=== PATIENT | female | born 1970 | race Caucasian/White ===

== ENCOUNTER 2018-03-26 13:31 | Inpatient (IN) ==
[2018-03-26] MEDS ORDERED: ASPIRIN 325 MG TABLET PO STA (14:15)
[2018-03-26] MEDS ORDERED: ONDANSETRON 4 MG/2 ML VIAL ONE (14:52)
[2018-03-26] MEDS ORDERED: ONDANSETRON 4 MG/2 ML VIAL IV STA (14:55)
[2018-03-26 14:56] LABS: Basophils # 0.1 10*3/uL (0.0-0.2); Basophils % 0.8 % (0.0-0.8); Eosinophils % 0.4 % (0.00-10.9); Hematocrit 37.6 VOL% (35.7-47.0); Hemoglobin 12.6 GM/DL (12.0-16.0); Immature Granulocytes % 0.4 %; Immature Granulocytes Absolute 0.04 #; Lymphocytes # 1.6 10*3/uL (1.4-4.0); Mean Corpuscular HGB Conc 33.5 GM/DL (32-36); Mean Corpuscular Hemoglobin 35 PG (27-34); Mean Corpuscular Volume 104.4 FL (87-102); Mean Platelet Volume 9.2 FL (9.6-12.0); Monocytes # 0.5 10*3/uL (0.11-0.8); Monocytes % 5.9 % (1.7-12.7); Neutrophils # 6.6 10*3/uL (1.4-7.4); Neutrophils % 74.5 % (38.7-73.9); Platelet Count 330 T/CUMM (130-400); Red Cell Distribution Width 15.2 % (9.3-17.3); White Blood Count 8.9 T/CUMM (4-12)
[2018-03-26 15:04] LABS: PT Patient Result 10.1 SECS; Partial Thromboplastin Time 28.1 SECS (0-40)
[2018-03-26 15:12] LABS: Apearance,Urine Slightly Hazy (Clear); Bacteria,Urine Occasional /HPF (Few); Bilirubin,Urine Negative (Negative); Blood, Urine Small mg/dL (Negative); Glucose,Urine (UA) Negative (Negative); Ketones,Urine Negative (Negative); Mucus,Urine Occasional /LPF (Occasional); Nitrite,Urine Negative (Negative); Protein,Urine Negative; RBC,Urine <1 /HPF (0-4); Squamous Epithelial Cell,Urine Few /HPF (0-10); Urine Color Yellow (Yellow); Urine Urobilinogen < 2.0 EU/DL (0.2-1.0); WBC,Urine 1 /HPF (0-6)
[2018-03-26 15:16] LABS: Alanine Aminotransferase 16 U/L (13-56); Albumin 3.6 G/DL (3.4-5.0); Alkaline Phosphatase 72 U/L (45-117); Aspartate Amino Transferase 22 U/L (0-37); Bilirubin,Total < 0.39 MG/DL (0.2-1.0); Blood Urea Nitrogen 5 MG/DL (7-18); Calcium 8.5 MG/DL (8.5-10.1); Glucose 85 MG/DL (74-106); Osmolality,Calculated 274.4 MOS/KG (273-304); Sodium 140 MMOL/L (136-145); Total Protein 7.2 G/DL (6.4-8.3)
[2018-03-26 15:17] LABS: Barbiturates Screen,Urine Negative (Negative); Benzodiazepines Screen,Urine Positive (Negative); Cannabinoid Screen,Urine Negative (Negative); Opiate Screen,Urine Negative (Negative); Phencyclidine Screen,Urine Negative (Negative)
[2018-03-26] MEDS ORDERED: NITROGLYCERIN SL 0.4 MG TABLET SL PRN (16:22)
[2018-03-26] MEDS ORDERED: ZALEPLON 5 MG CAPSULE PO PRN (16:22)
[2018-03-26] MEDS ORDERED: clonazePAM 0.5 MG TABLET PO PRN (16:26)
[2018-03-26] MEDS ORDERED: ENOXAPARIN 40 MG/0.4 ML SYRINGE SUBCUT SCH (16:30)
[2018-03-26] MEDS ORDERED: IBUPROFEN 800 MG TABLET PO PRN (17:52)
[2018-03-26 18:26] LABS: Risk Ratio 7.5
[2018-03-26] MEDS: ONDANSETRON 4 MG/2 ML VIAL IV PRN (19:16)
[2018-03-26] MEDS: PROMETHAZINE 25 MG TABLET PO PRN (19:47)
[2018-03-26] MEDS: ENOXAPARIN 60 MG/0.6 ML SYRINGE SUBCUT SCH (20:44)
[2018-03-26] MEDS: ROSUVASTATIN 20 MG TABLET PO SCH (20:44)
[2018-03-26] MEDS: METOPROLOL TARTRATE 25 MG TABLET PO SCH (22:57)
[2018-03-27] MEDS ORDERED: MAGNESIUM ASPARTATE PO SCH (09:00)
[2018-03-27] MEDS ORDERED: POTASSIUM PO SCH (09:00)
[2018-03-27] MEDS ORDERED: ASPIRIN EC 325 MG TABLET PO SCH (09:00)
[2018-03-27] MEDS ORDERED: POTASSIUM CHLORIDE RIDER 10 MEQ in PREMIX 1 EACH IV PRN (09:04)
[2018-03-27] MEDS ORDERED: MAGNESIUM SULF RIDER 2 GM in PREMIX 1 EACH IV PRN (09:04)
[2018-03-27] MEDS: METOPROLOL TARTRATE 25 MG TABLET PO SCH ×2 (09:33→21:41)
[2018-03-27 09:40] LABS: Basophils # 0.1 10*3/uL (0.0-0.2); Basophils % 1.5 % (0.0-0.8); Eosinophils # 0.1 10*3/uL (0.0-0.87); Eosinophils % 1.4 % (0.00-10.9); Hematocrit 34.1 VOL% (35.7-47.0); Hemoglobin 11.4 GM/DL (12.0-16.0); Immature Granulocytes % 0.3 %; Immature Granulocytes Absolute 0.02 #; Lymphocytes # 2.6 10*3/uL (1.4-4.0); Lymphocytes % 43.8 % (21.3-54.2); Mean Corpuscular HGB Conc 33.4 GM/DL (32-36); Mean Corpuscular Hemoglobin 35 PG (27-34); Mean Corpuscular Volume 104.9 FL (87-102); Mean Platelet Volume 9.4 FL (9.6-12.0); Monocytes # 0.4 10*3/uL (0.11-0.8); Neutrophils # 2.7 10*3/uL (1.4-7.4); Platelet Count 285 T/CUMM (130-400); Red Blood Count 3.25 MC/CUMM (3.8-5.5); Red Cell Distribution Width 15.3 % (9.3-17.3); White Blood Count 5.8 T/CUMM (4-12)
[2018-03-27] MEDS: ASPIRIN EC 81 MG TABLET PO SCH ×2 (10:00→13:07)
[2018-03-27] MEDS: PANTOPRAZOLE 40 MG TABLET PO SCH (10:00)
[2018-03-27 10:01] LABS: Calcium 7.9 MG/DL (8.5-10.1); Osmolality,Calculated 277.3 MOS/KG (273-304); Potassium 3.6 MMOL/L (3.5-5.1)
[2018-03-27] MEDS: LEVOTHYROXINE 150 MCG TABLET PO SCH (10:01)
[2018-03-27] MEDS: ENOXAPARIN 60 MG/0.6 ML SYRINGE SUBCUT SCH ×2 (10:16→21:41)
[2018-03-27] MEDS: ONDANSETRON 4 MG/2 ML VIAL IV PRN (10:16)
[2018-03-27] MEDS ORDERED: SODIUM CHLORIDE 0.45% 1,000 ML IV SCH (12:00)
[2018-03-27] MEDS ORDERED: diphenhydrAMINE CAP 25 MG CAPSULE PO ONE (12:30)
[2018-03-27] MEDS ORDERED: DIAZEPAM 5 MG TABLET PO ONE (12:30)
[2018-03-27] MEDS ORDERED: MIDAZOLAM 2 MG/2 ML VIAL ONE ×2 (13:19→14:26)
[2018-03-27] MEDS ORDERED: LIDOCAINE 1% 20 ML VIAL ONE (13:19)
[2018-03-27] MEDS ORDERED: fentaNYL 100 MCG/2 ML VIAL ONE (13:32)
[2018-03-27 13:37] LABS: Free T4 (Free Thyroxine) 0.23 NG/DL (0.76-1.46)
[2018-03-27] MEDS ORDERED: BIVALIRUDIN 250 MG VIAL IV ONE ×2 (13:55→13:56)
[2018-03-27] MEDS ORDERED: CLOPIDOGREL 300 MG TABLET ONE (14:31)
[2018-03-27] MEDS ORDERED: ACETAMINOPHEN 325 MG TABLET PO PRN (14:52)
[2018-03-27] MEDS ORDERED: fentaNYL 100 MCG/2 ML VIAL IV PRN (14:52)
[2018-03-27] MEDS: ROSUVASTATIN 20 MG TABLET PO SCH (21:41)
[2018-03-27] MEDS: MORPHINE 4 MG/1 ML VIAL IV PRN (21:41)
[2018-03-27] MEDS: PROMETHAZINE 25 MG TABLET PO PRN (23:04)
[2018-03-28] MEDS: MORPHINE 4 MG/1 ML VIAL IV PRN (02:23)
[2018-03-28 05:55] LABS: Basophils # 0.1 10*3/uL (0.0-0.2); Basophils % 1.1 % (0.0-0.8); Eosinophils # 0.1 10*3/uL (0.0-0.87); Eosinophils % 1.7 % (0.00-10.9); Hematocrit 34.6 VOL% (35.7-47.0); Hemoglobin 11.8 GM/DL (12.0-16.0); Immature Granulocytes % 0.6 %; Immature Granulocytes Absolute 0.04 #; Lymphocytes # 2.3 10*3/uL (1.4-4.0); Lymphocytes % 31.6 % (21.3-54.2); Mean Corpuscular HGB Conc 34.1 GM/DL (32-36); Mean Corpuscular Hemoglobin 36 PG (27-34); Mean Corpuscular Volume 105.5 FL (87-102); Mean Platelet Volume 9.6 FL (9.6-12.0); Monocytes # 0.5 10*3/uL (0.11-0.8); Monocytes % 6.7 % (1.7-12.7); Neutrophils # 4.2 10*3/uL (1.4-7.4); Neutrophils % 58.3 % (38.7-73.9); Platelet Count 272 T/CUMM (130-400); Red Blood Count 3.28 MC/CUMM (3.8-5.5); Red Cell Distribution Width 15.7 % (9.3-17.3); White Blood Count 7.2 T/CUMM (4-12)
[2018-03-28 06:27] LABS: Calcium 8.6 MG/DL (8.5-10.1); Osmolality,Calculated 279.1 MOS/KG (273-304); Potassium 3.6 MMOL/L (3.5-5.1)
[2018-03-28] MEDS: METOPROLOL TARTRATE 25 MG TABLET PO SCH (08:15)
[2018-03-28] MEDS: PANTOPRAZOLE 40 MG TABLET PO SCH (08:15)
[2018-03-28] MEDS: LEVOTHYROXINE 150 MCG TABLET PO SCH (08:15)
[2018-03-28] MEDS ORDERED: CLOPIDOGREL 75 MG TABLET PO SCH (09:00)
[2018-03-28] MEDS ORDERED: ASPIRIN 325 MG TABLET PO SCH (09:00)
[2018-03-28] MEDS ORDERED: SODIUM CHLORIDE 0.9% 500 ML IV ONE (09:11)
[2018-03-28 10:25] VITALS: BP 96/51
== END 2018-03-28 10:23 | disposition home or self-care (01) | DRG 247 ==
LOC: EDUNIT# → EDBD → N.ED 13:31 → N.EDINP 13:31 → SUATTDRO 15:35 → N.4E 17:11 → N.CC 03-27 14:36
PROVIDERS: ADMIT Internal Medicine; ATTEND Internal Medicine
PROC: CLCCHCL (ICD-10-PCS; 2018-03-27 13:45)

== ENCOUNTER 2018-04-16 11:41 | Observation (INO) ==
[2018-04-16 13:00] LABS: Basophils # 0.1 10*3/uL (0.0-0.2); Basophils % 0.9 % (0.0-0.8); Eosinophils # 0.1 10*3/uL (0.0-0.87); Eosinophils % 2.1 % (0.00-10.9); Hematocrit 35.6 VOL% (35.7-47.0); Hemoglobin 12.4 GM/DL (12.0-16.0); Immature Granulocytes % 0.3 %; Immature Granulocytes Absolute 0.02 #; Lymphocytes # 1.9 10*3/uL (1.4-4.0); Mean Corpuscular HGB Conc 34.8 GM/DL (32-36); Mean Corpuscular Hemoglobin 35 PG (27-34); Mean Corpuscular Volume 101.7 FL (87-102); Mean Platelet Volume 9.9 FL (9.6-12.0); Monocytes # 0.4 10*3/uL (0.11-0.8); Monocytes % 6.1 % (1.7-12.7); Neutrophils # 4.1 10*3/uL (1.4-7.4); Neutrophils % 61.6 % (38.7-73.9); Platelet Count 344 T/CUMM (130-400); White Blood Count 6.6 T/CUMM (4-12)
[2018-04-16 13:26] LABS: Blood Urea Nitrogen 3 MG/DL (7-18); Calcium 8.7 MG/DL (8.5-10.1); Glucose 82 MG/DL (74-106); Osmolality,Calculated 278.1 MOS/KG (273-304); Potassium 3.4 MMOL/L (3.5-5.1); Sodium 142 MMOL/L (136-145)
[2018-04-16] MEDS ORDERED: ONDANSETRON 4 MG/2 ML VIAL ONE (13:50)
[2018-04-16] MEDS ORDERED: SODIUM CHLORIDE 0.9% 1,000 ML IV STA (14:01)
[2018-04-16] MEDS ORDERED: ONDANSETRON 4 MG/2 ML VIAL IV STA (14:01)
[2018-04-16] MEDS ORDERED: KETOROLAC 30 MG/1 ML VIAL ONE (14:50)
[2018-04-16] MEDS ORDERED: KETOROLAC 30 MG/1 ML VIAL IV STA (14:52)
[2018-04-16] MEDS ORDERED: ONDANSETRON 4 MG/2 ML VIAL IV PRN (17:06)
[2018-04-16 18:51] LABS: Apearance,Urine CLEAR (Clear); Bacteria,Urine Occasional /HPF (Few); Bilirubin,Urine Negative (Negative); Blood, Urine Negative (Negative); Glucose,Urine (UA) Negative (Negative); Ketones,Urine Negative (Negative); Mucus,Urine Occasional /LPF (Occasional); Nitrite,Urine Negative (Negative); Protein,Urine Negative; RBC,Urine 1 /HPF (0-4); Squamous Epithelial Cell,Urine Occasional /HPF (0-10); Urine Color Straw (Yellow); Urine Specific Gravity 1.004 (1.001-1.035); Urine Urobilinogen < 2.0 EU/DL (0.2-1.0); WBC,Urine 5 /HPF (0-6)
[2018-04-16] MEDS: SODIUM CHLORIDE 0.9% 1,000 ML IV SCH (19:55)
[2018-04-16] MEDS: POTASSIUM CHLORIDE 20 MEQ TABLET PO SCH ×2 (19:59→22:22)
[2018-04-16] MEDS ORDERED: CYCLOBENZAPRINE 10 MG TABLET PO PRN (20:28)
[2018-04-16] MEDS ORDERED: ROSUVASTATIN 20 MG TABLET PO SCH (21:00)
[2018-04-16] MEDS: MORPHINE 4 MG/1 ML VIAL IV PRN (21:53)
[2018-04-17] MEDS: POTASSIUM CHLORIDE 20 MEQ TABLET PO SCH (01:46)
[2018-04-17 04:52] LABS: Basophils # 0.1 10*3/uL (0.0-0.2); Eosinophils # 0.2 10*3/uL (0.0-0.87); Eosinophils % 2.8 % (0.00-10.9); Hematocrit 33.4 VOL% (35.7-47.0); Hemoglobin 11.4 GM/DL (12.0-16.0); Immature Granulocytes % 0.3 %; Immature Granulocytes Absolute 0.02 #; Lymphocytes # 2.7 10*3/uL (1.4-4.0); Mean Corpuscular HGB Conc 34.1 GM/DL (32-36); Mean Corpuscular Hemoglobin 35 PG (27-34); Mean Corpuscular Volume 103.7 FL (87-102); Mean Platelet Volume 10.4 FL (9.6-12.0); Monocytes # 0.4 10*3/uL (0.11-0.8); Monocytes % 6.7 % (1.7-12.7); Neutrophils # 2.8 10*3/uL (1.4-7.4); Neutrophils % 45.2 % (38.7-73.9); Platelet Count 283 T/CUMM (130-400); Red Blood Count 3.22 MC/CUMM (3.8-5.5); Red Cell Distribution Width 14.1 % (9.3-17.3); White Blood Count 6.1 T/CUMM (4-12)
[2018-04-17] MEDS: MORPHINE 4 MG/1 ML VIAL IV PRN (05:12)
[2018-04-17 05:13] LABS: Calcium 8.2 MG/DL (8.5-10.1); Osmolality,Calculated 287.6 MOS/KG (273-304); Potassium 3.9 MMOL/L (3.5-5.1)
[2018-04-17] MEDS ORDERED: LEVOTHYROXINE 150 MCG TABLET PO SCH (06:30)
[2018-04-17] MEDS: SODIUM CHLORIDE 0.9% 1,000 ML IV SCH ×2 (06:53→09:31)
[2018-04-17] MEDS ORDERED: PANTOPRAZOLE 40 MG TABLET PO SCH (09:00)
[2018-04-17] MEDS ORDERED: ASPIRIN 325 MG TABLET PO SCH (09:00)
[2018-04-17] MEDS ORDERED: CLOPIDOGREL 75 MG TABLET PO SCH (09:00)
[2018-04-17] MEDS ORDERED: PYRIDOXINE 100 MG TABLET PO SCH (09:00)
[2018-04-17] MEDS ORDERED: MULTIVITAMIN (CENTRUM) TABLET PO SCH (09:00)
[2018-04-17 11:57] VITALS: BP 93/61
== END 2018-04-17 15:50 | disposition home or self-care (01) ==
LOC: N.EDINP 11:41 → N.ED 11:41 → N.2W 17:19 → N.TELEN 18:32
PROVIDERS: ADMIT Internal Medicine Infectious Disease; ATTEND Internal Medicine Infectious Disease

== ENCOUNTER 2018-05-21 16:45 | Observation (INO) ==
[2018-05-21 17:52] LABS: Albumin 3.6 G/DL (3.4-5.0); Bilirubin,Total 0.6 MG/DL (0.2-1.0); Calcium 8.5 MG/DL (8.5-10.1); Osmolality,Calculated 276.3 MOS/KG (273-304); Potassium 3.9 MMOL/L (3.5-5.1); Total Protein 6.9 G/DL (6.4-8.3)
[2018-05-21 18:02] LABS: Apearance,Urine CLEAR (Clear); Bilirubin,Urine Negative (Negative); Blood, Urine Moderate mg/dL (Negative); Glucose,Urine (UA) Negative (Negative); Ketones,Urine Negative (Negative); Mucus,Urine Occasional /LPF (Occasional); Nitrite,Urine Negative (Negative); Protein,Urine Negative; RBC,Urine 1 /HPF (0-4); Urine Color Straw (Yellow); Urine Specific Gravity 1.002 (1.001-1.035); Urine Urobilinogen < 2.0 EU/DL (0.2-1.0); WBC,Urine 1 /HPF (0-6)
[2018-05-21 18:03] LABS: Basophils # 0.1 10*3/uL (0.0-0.2); Basophils % 0.7 % (0.0-0.8); Eosinophils % 0.5 % (0.00-10.9); Hematocrit 36.8 VOL% (35.7-47.0); Hemoglobin 12.4 GM/DL (12.0-16.0); Immature Granulocytes % 0.5 %; Immature Granulocytes Absolute 0.04 #; Lymphocytes # 2.1 10*3/uL (1.4-4.0); Lymphocytes % 23.8 % (21.3-54.2); Mean Corpuscular HGB Conc 33.7 GM/DL (32-36); Mean Corpuscular Hemoglobin 35 PG (27-34); Mean Corpuscular Volume 102.5 FL (87-102); Mean Platelet Volume 9.6 FL (9.6-12.0); Monocytes # 0.6 10*3/uL (0.11-0.8); Monocytes % 6.4 % (1.7-12.7); Neutrophils % 68.1 % (38.7-73.9); Platelet Count 328 T/CUMM (130-400); Red Blood Count 3.59 MC/CUMM (3.8-5.5); White Blood Count 8.8 T/CUMM (4-12)
[2018-05-21 18:09] LABS: Barbiturates Screen,Urine Negative (Negative); Benzodiazepines Screen,Urine Positive (Negative); Cannabinoid Screen,Urine Negative (Negative); Opiate Screen,Urine Negative (Negative); Phencyclidine Screen,Urine Negative (Negative)
[2018-05-21] MEDS ORDERED: KETOROLAC 30 MG/1 ML VIAL IV STA (20:54)
[2018-05-21] MEDS ORDERED: ONDANSETRON 4 MG/2 ML VIAL IV STA (20:54)
[2018-05-21] MEDS ORDERED: ONDANSETRON 4 MG/2 ML VIAL IV PRN (22:42)
[2018-05-21] MEDS ORDERED: SODIUM CHLORIDE 0.9% 1,000 ML IV SCH (22:42)
[2018-05-21] MEDS ORDERED: PROMETHAZINE 25 MG/1 ML VIAL IM PRN (22:42)
[2018-05-21] MEDS ORDERED: clonazePAM 0.5 MG TABLET PO PRN ×2 (22:42→22:54)
[2018-05-21] MEDS ORDERED: IBUPROFEN 600 MG TABLET PO PRN (22:43)
[2018-05-22 04:23] LABS: Basophils % 0.6 % (0.0-0.8); Eosinophils # 0.1 10*3/uL (0.0-0.87); Eosinophils % 1.2 % (0.00-10.9); Hematocrit 35.9 VOL% (35.7-47.0); Hemoglobin 11.9 GM/DL (12.0-16.0); Immature Granulocytes % 0.4 %; Immature Granulocytes Absolute 0.02 #; Lymphocytes # 1.9 10*3/uL (1.4-4.0); Lymphocytes % 37.4 % (21.3-54.2); Mean Corpuscular HGB Conc 33.1 GM/DL (32-36); Mean Corpuscular Hemoglobin 34 PG (27-34); Mean Corpuscular Volume 103.2 FL (87-102); Mean Platelet Volume 10.1 FL (9.6-12.0); Monocytes # 0.5 10*3/uL (0.11-0.8); Monocytes % 10.3 % (1.7-12.7); Neutrophils # 2.5 10*3/uL (1.4-7.4); Neutrophils % 50.1 % (38.7-73.9); Platelet Count 259 T/CUMM (130-400); Red Blood Count 3.48 MC/CUMM (3.8-5.5); White Blood Count 4.9 T/CUMM (4-12)
[2018-05-22 05:20] LABS: Albumin 3.1 G/DL (3.4-5.0); Bilirubin,Total 0.4 MG/DL (0.2-1.0); Calcium 8.5 MG/DL (8.5-10.1); Osmolality,Calculated 283.8 MOS/KG (273-304); Potassium 3.4 MMOL/L (3.5-5.1); Risk Ratio 1.98; Thyroid Stimulating Hormone 9.42 uIU/ml (0.358-3.74); Total Protein 6.1 G/DL (6.4-8.3); VLDL CHOLESTEROL 12.2 MG/DL
[2018-05-22] MEDS: LEVOTHYROXINE 150 MCG TABLET PO SCH (06:08)
[2018-05-22] MEDS ORDERED: KETOROLAC 30 MG/1 ML VIAL IV ONE (08:24)
[2018-05-22] MEDS ORDERED: ONDANSETRON 4 MG/2 ML VIAL IV ONE (08:24)
[2018-05-22] MEDS: PYRIDOXINE 100 MG TABLET PO SCH (11:03)
[2018-05-22] MEDS: PANTOPRAZOLE 40 MG TABLET PO SCH (11:04)
[2018-05-22] MEDS: ASPIRIN 325 MG TABLET PO SCH (11:04)
[2018-05-22] MEDS: MULTIVITAMIN (CENTRUM) TABLET PO SCH (11:04)
[2018-05-22] MEDS: CLOPIDOGREL 75 MG TABLET PO SCH (11:04)
[2018-05-22] MEDS: ENOXAPARIN 40 MG/0.4 ML SYRINGE SUBCUT SCH (11:05)
[2018-05-22] MEDS ORDERED: LORazepam 2 MG/1 ML VIAL IV ONE (11:23)
[2018-05-22] MEDS ORDERED: KETOROLAC 10 MG TABLET PO PRN (15:59)
[2018-05-22] MEDS ORDERED: BUTALBITAL/ACETAMIN/CAFFEINE 50-325-40 MG TABLET PO PRN (17:57)
[2018-05-22] MEDS ORDERED: TOPIRAMATE 25 MG TABLET PO SCH (21:00)
[2018-05-22] MEDS ORDERED: traZODone 50 MG TABLET PO PRN (21:00)
[2018-05-23 04:32] LABS: Basophils % 0.9 % (0.0-0.8); Eosinophils # 0.1 10*3/uL (0.0-0.87); Eosinophils % 1.6 % (0.00-10.9); Hematocrit 34.1 VOL% (35.7-47.0); Hemoglobin 11.5 GM/DL (12.0-16.0); Immature Granulocytes % 0.2 %; Immature Granulocytes Absolute 0.01 #; Lymphocytes % 45.8 % (21.3-54.2); Mean Corpuscular HGB Conc 33.7 GM/DL (32-36); Mean Corpuscular Hemoglobin 34 PG (27-34); Mean Corpuscular Volume 101.8 FL (87-102); Mean Platelet Volume 10.1 FL (9.6-12.0); Monocytes # 0.4 10*3/uL (0.11-0.8); Monocytes % 8.6 % (1.7-12.7); Neutrophils # 1.8 10*3/uL (1.4-7.4); Neutrophils % 42.9 % (38.7-73.9); Platelet Count 276 T/CUMM (130-400); Red Blood Count 3.35 MC/CUMM (3.8-5.5); Red Cell Distribution Width 13.1 % (9.3-17.3); White Blood Count 4.3 T/CUMM (4-12)
[2018-05-23 05:11] LABS: Albumin 2.9 G/DL (3.4-5.0); Bilirubin,Total 0.4 MG/DL (0.2-1.0); Calcium 8.5 MG/DL (8.5-10.1); Osmolality,Calculated 282.8 MOS/KG (273-304); Potassium 3.6 MMOL/L (3.5-5.1); Total Protein 5.9 G/DL (6.4-8.3)
[2018-05-23] MEDS: LEVOTHYROXINE 150 MCG TABLET PO SCH (06:13)
[2018-05-23] MEDS: MULTIVITAMIN (CENTRUM) TABLET PO SCH (09:11)
[2018-05-23] MEDS: ASPIRIN 325 MG TABLET PO SCH (09:11)
[2018-05-23] MEDS: PYRIDOXINE 100 MG TABLET PO SCH (09:11)
[2018-05-23] MEDS: PANTOPRAZOLE 40 MG TABLET PO SCH (09:11)
[2018-05-23] MEDS: CLOPIDOGREL 75 MG TABLET PO SCH (09:11)
[2018-05-23] MEDS: ENOXAPARIN 40 MG/0.4 ML SYRINGE SUBCUT SCH (09:12)
[2018-05-23 11:45] VITALS: BP 85/61
[2018-05-23] MEDS ORDERED: KETOROLAC 30 MG/1 ML VIAL IV ONE (14:20)
== END 2018-05-23 16:00 | disposition home or self-care (01) ==
LOC: EDUNIT# → EDBD → N.ED 16:45 → N.EDINP 16:45 → N.TELES 21:58
PROVIDERS: ADMIT Internal Medicine; ATTEND Internal Medicine

== ENCOUNTER 2019-03-31 16:07 | Observation (INO) ==
[2019-03-31] MEDS ORDERED: SODIUM CHLORIDE 0.9% 500 ML IV STA (16:42)
[2019-03-31] MEDS ORDERED: ONDANSETRON 4 MG/2 ML VIAL IV STA (16:42)
[2019-03-31] MEDS ORDERED: ALUM/MAG/SIMETH/LIDO VISC 1:1 30 ML BOTTLE PO STA (16:42)
[2019-03-31 17:23] LABS: Apearance,Urine CLEAR (Clear); Bacteria,Urine Occasional /HPF (Few); Bilirubin,Urine Negative (Negative); Blood, Urine Negative (Negative); Glucose,Urine (UA) Negative (Negative); Ketones,Urine Negative (Negative); Nitrite,Urine Negative (Negative); Protein,Urine Negative; RBC,Urine <1 /HPF (0-4); Squamous Epithelial Cell,Urine Occasional /HPF (0-10); Urine Color Colorless (Yellow); Urine Specific Gravity 1.003 (1.001-1.035); Urine Urobilinogen < 2.0 EU/DL (0.2-1.0); WBC,Urine 1 /HPF (0-6)
[2019-03-31 17:50] LABS: Barbiturates Screen,Urine Negative (Negative); Benzodiazepines Screen,Urine Negative (Negative); Cannabinoid Screen,Urine Negative (Negative); Opiate Screen,Urine Negative (Negative); Phencyclidine Screen,Urine Negative (Negative)
[2019-03-31 17:54] LABS: Basophils # 0.1 10*3/uL (0.0-0.2); Basophils % 0.9 % (0.0-0.8); Eosinophils # 0.1 10*3/uL (0.0-0.87); Eosinophils % 1.3 % (0.00-10.9); Hematocrit 38.7 VOL% (35.7-47.0); Immature Granulocytes % 0.2 %; Immature Granulocytes Absolute 0.01 #; Lymphocytes % 36.2 % (21.3-54.2); Mean Corpuscular HGB Conc 33.6 GM/DL (32-36); Mean Corpuscular Volume 102.7 FL (87-102); Mean Platelet Volume 10.3 FL (9.6-12.0); Monocytes % 5.6 % (1.7-12.7); Neutrophils % 55.8 % (38.7-73.9); Platelet Count 371 T/CUMM (130-400); Red Blood Count 3.77 MC/CUMM (3.8-5.5); Red Cell Distribution Width 12.5 % (9.3-17.3); White Blood Count 5.6 T/CUMM (4-12)
[2019-03-31] MEDS ORDERED: ACETAMINOPHEN 500 MG TABLET ONE (17:59)
[2019-03-31] MEDS ORDERED: ACETAMINOPHEN 500 MG TABLET PO ONE (18:03)
[2019-03-31 18:10] LABS: INR 0.9; PT Patient Result 10.1 SECS
[2019-03-31 18:17] LABS: Alanine Aminotransferase < 9 U/L (13-56); Albumin 2.3 G/DL (3.4-5.0); Alkaline Phosphatase 75 U/L (45-117); Aspartate Amino Transferase 10 U/L (0-37); Bilirubin,Total < 0.39 MG/DL (0.2-1.0); Blood Urea Nitrogen 5 MG/DL (7-18); Calcium 6.5 MG/DL (8.5-10.1); Glucose 65 MG/DL (74-106); Osmolality,Calculated 295.7 MOS/KG (273-304); Total Protein 4.4 G/DL (6.4-8.3)
[2019-03-31] MEDS ORDERED: POTASSIUM CHLORIDE 20 MEQ TABLET PO STA (18:40)
[2019-03-31] MEDS ORDERED: MAGNESIUM SULF RIDER 2 GM in PREMIX 1 EACH IV STA (18:40)
[2019-03-31] MEDS ORDERED: MAGNESIUM SULF RIDER 2 GM in PREMIX 1 EACH IV ONE (21:16)
[2019-03-31] MEDS ORDERED: PROMETHAZINE 25 MG TABLET PO PRN (21:16)
[2019-03-31] MEDS ORDERED: MAGNESIUM SULF RIDER 4 GM in PREMIX 1 EACH IV PRN (22:31)
[2019-03-31] MEDS ORDERED: MAGNESIUM SULF RIDER 2 GM in PREMIX 1 EACH IV PRN (22:31)
[2019-03-31] MEDS ORDERED: ACETAMINOPHEN 500 MG TABLET PO PRN (22:38)
[2019-03-31] MEDS: SODIUM CHLORIDE 0.45% 1,000 ML IV SCH (23:05)
[2019-03-31] MEDS: ROSUVASTATIN 20 MG TABLET PO SCH (23:06)
[2019-03-31] MEDS: busPIRone 10 MG TABLET PO SCH (23:06)
[2019-03-31] MEDS: ENOXAPARIN 40 MG/0.4 ML SYRINGE SUBCUT SCH (23:06)
[2019-03-31] MEDS: POTASSIUM CHLORIDE 20 MEQ TABLET PO SCH (23:06)
[2019-03-31] MEDS ORDERED: diphenhydrAMINE CAP 25 MG CAPSULE PO PRN (23:37)
[2019-04-01] MEDS: POTASSIUM CHLORIDE 20 MEQ TABLET PO SCH ×3 (02:20→09:50)
[2019-04-01 04:51] LABS: Basophils % 0.8 % (0.0-0.8); Eosinophils # 0.1 10*3/uL (0.0-0.87); Hemoglobin 12.1 GM/DL (12.0-16.0); Immature Granulocytes % 0.4 %; Immature Granulocytes Absolute 0.02 #; Lymphocytes # 2.4 10*3/uL (1.4-4.0); Lymphocytes % 47.6 % (21.3-54.2); Mean Corpuscular HGB Conc 31.8 GM/DL (32-36); Mean Corpuscular Volume 106.4 FL (87-102); Mean Platelet Volume 10.3 FL (9.6-12.0); Monocytes % 6.9 % (1.7-12.7); Neutrophils % 42.3 % (38.7-73.9); Platelet Count 319 T/CUMM (130-400); Red Blood Count 3.57 MC/CUMM (3.8-5.5); Red Cell Distribution Width 12.3 % (9.3-17.3); White Blood Count 5.1 T/CUMM (4-12)
[2019-04-01 05:48] LABS: Calcium 8.4 MG/DL (8.5-10.1); Osmolality,Calculated 284.7 MOS/KG (273-304)
[2019-04-01] MEDS: LEVOTHYROXINE 200 MCG TABLET PO SCH (06:20)
[2019-04-01] MEDS ORDERED: NITROGLYCERIN SL 0.4 MG TABLET SL PRN (08:10)
[2019-04-01] MEDS ORDERED: POTASSIUM CHLORIDE RIDER 10 MEQ in PREMIX 1 EACH IV PRN (08:44)
[2019-04-01] MEDS ORDERED: diphenhydrAMINE CAP 25 MG CAPSULE PO ONE (08:44)
[2019-04-01] MEDS ORDERED: DIAZEPAM 5 MG TABLET PO ONE (08:44)
[2019-04-01] MEDS ORDERED: CYANOCOBALAMIN 1000 MCG/1 ML VIAL IM SCH (09:00)
[2019-04-01] MEDS: ASPIRIN 325 MG TABLET PO SCH (09:48)
[2019-04-01] MEDS: clonazePAM 0.5 MG TABLET PO SCH (09:49)
[2019-04-01] MEDS: busPIRone 10 MG TABLET PO SCH ×3 (09:49→22:05)
[2019-04-01] MEDS: CHOLECALCIFEROL 5,000 UNIT TABLET PO SCH (09:49)
[2019-04-01] MEDS: FUROSEMIDE 20 MG TABLET PO SCH (09:49)
[2019-04-01] MEDS: MULTIVITAMIN (CENTRUM) TABLET PO SCH (09:49)
[2019-04-01] MEDS: PANTOPRAZOLE 40 MG TABLET PO SCH (09:49)
[2019-04-01] MEDS: OMEGA 3 ACID ETHYL ESTERS 1 GM CAPSULE PO SCH (09:50)
[2019-04-01] MEDS: FLUoxetine 20 MG CAPSULE PO SCH (09:50)
[2019-04-01] MEDS: CLOPIDOGREL 75 MG TABLET PO SCH (09:52)
[2019-04-01] MEDS: SODIUM CHLORIDE 0.45% 1,000 ML IV SCH (09:56)
[2019-04-01] MEDS: ONDANSETRON 4 MG/2 ML VIAL IV PRN (15:31)
[2019-04-01 15:41] LABS: Free T4 (Free Thyroxine) 0.39 NG/DL (0.76-1.46)
[2019-04-01] MEDS: ROSUVASTATIN 20 MG TABLET PO SCH (22:05)
[2019-04-01] MEDS: ENOXAPARIN 40 MG/0.4 ML SYRINGE SUBCUT SCH (22:05)
[2019-04-02 05:03] LABS: Basophils # 0.1 10*3/uL (0.0-0.2); Basophils % 0.9 % (0.0-0.8); Eosinophils # 0.1 10*3/uL (0.0-0.87); Eosinophils % 1.9 % (0.00-10.9); Hematocrit 39.3 VOL% (35.7-47.0); Hemoglobin 12.6 GM/DL (12.0-16.0); Immature Granulocytes % 0.1 %; Immature Granulocytes Absolute 0.01 #; Lymphocytes # 2.5 10*3/uL (1.4-4.0); Lymphocytes % 37.3 % (21.3-54.2); Mean Corpuscular HGB Conc 32.1 GM/DL (32-36); Mean Corpuscular Volume 105.9 FL (87-102); Mean Platelet Volume 10.3 FL (9.6-12.0); Neutrophils % 52.8 % (38.7-73.9); Platelet Count 329 T/CUMM (130-400); Red Blood Count 3.71 MC/CUMM (3.8-5.5); Red Cell Distribution Width 12.5 % (9.3-17.3); White Blood Count 6.7 T/CUMM (4-12)
[2019-04-02 05:27] LABS: Calcium 8.8 MG/DL (8.5-10.1); Osmolality,Calculated 283.8 MOS/KG (273-304)
[2019-04-02 05:29] LABS: Risk Ratio 5.83; VLDL CHOLESTEROL 44.6 MG/DL
[2019-04-02] MEDS ORDERED: SODIUM BICARBONATE 2.4 MEQ/5 ML VIAL ONE (06:52)
[2019-04-02] MEDS ORDERED: HEPARIN/NACL 0.9% 2 UNITS/ML 1,000 ML IV ONE (06:52)
[2019-04-02] MEDS ORDERED: LIDOCAINE 1% 20 ML VIAL ONE (06:52)
[2019-04-02] MEDS ORDERED: fentaNYL 100 MCG/2 ML VIAL ONE (07:52)
[2019-04-02] MEDS ORDERED: MIDAZOLAM 2 MG/2 ML VIAL ONE (07:52)
[2019-04-02] MEDS ORDERED: diphenhydrAMINE CAP 25 MG CAPSULE PO ONE (08:00)
[2019-04-02] MEDS ORDERED: DIAZEPAM 5 MG TABLET PO ONE (08:00)
[2019-04-02] MEDS ORDERED: ASPIRIN 325 MG TABLET ONE ×2 (08:17→08:18)
[2019-04-02] MEDS: ONDANSETRON 4 MG/2 ML VIAL IV PRN (09:32)
[2019-04-02] MEDS: SODIUM CHLORIDE 0.45% 1,000 ML IV SCH (09:40)
[2019-04-02] MEDS: fentaNYL 100 MCG/2 ML VIAL IV PRN ×2 (09:43→13:00)
[2019-04-02] MEDS: MULTIVITAMIN (CENTRUM) TABLET PO SCH (10:31)
[2019-04-02] MEDS: CHOLECALCIFEROL 5,000 UNIT TABLET PO SCH (10:32)
[2019-04-02] MEDS: CLOPIDOGREL 75 MG TABLET PO SCH (10:32)
[2019-04-02] MEDS: LEVOTHYROXINE 200 MCG TABLET PO SCH (10:32)
[2019-04-02] MEDS: PANTOPRAZOLE 40 MG TABLET PO SCH (10:32)
[2019-04-02] MEDS: OMEGA 3 ACID ETHYL ESTERS 1 GM CAPSULE PO SCH (10:32)
[2019-04-02] MEDS: clonazePAM 0.5 MG TABLET PO SCH (10:32)
[2019-04-02] MEDS: FLUoxetine 20 MG CAPSULE PO SCH (10:32)
[2019-04-02] MEDS: busPIRone 10 MG TABLET PO SCH ×2 (10:33→15:11)
[2019-04-02] MEDS: ASPIRIN 325 MG TABLET PO SCH (10:33)
[2019-04-02] MEDS: FUROSEMIDE 20 MG TABLET PO SCH (10:33)
[2019-04-02 16:14] VITALS: BP 86/54
[2019-04-02] MEDS ORDERED: EZETIMIBE 10 MG TABLET PO SCH (21:00)
== END 2019-04-02 16:42 | disposition home or self-care (01) ==
LOC: EDUNIT# → EDBD → N.EDINP 16:07 → N.ED 16:07 → N.5E 20:47
PROVIDERS: ADMIT Internal Medicine; ATTEND Internal Medicine
PROC: CLCCHCL (ICD-10-PCS; 2019-04-02 08:15)

== ENCOUNTER 2019-09-13 23:12 | Observation (INO) ==
[2019-09-13] MEDS ORDERED: MORPHINE 4 MG/1 ML VIAL IV STA (23:56)
[2019-09-13] MEDS ORDERED: ONDANSETRON 4 MG/2 ML VIAL IV STA (23:56)
[2019-09-13] MEDS ORDERED: ASPIRIN 325 MG TABLET PO STA (23:56)
[2019-09-14 00:38] LABS: Basophils # 0.1 10*3/uL (0.0-0.2); Basophils % 0.8 % (0.0-0.8); Eosinophils # 0.1 10*3/uL (0.0-0.87); Eosinophils % 0.7 % (0.00-10.9); Hematocrit 39.4 VOL% (35.7-47.0); Hemoglobin 13.2 GM/DL (12.0-16.0); Immature Granulocytes % 0.4 %; Immature Granulocytes Absolute 0.03 #; Lymphocytes # 2.3 10*3/uL (1.4-4.0); Lymphocytes % 32.2 % (21.3-54.2); Mean Corpuscular HGB Conc 33.5 GM/DL (32-36); Mean Corpuscular Volume 102.9 FL (87-102); Mean Platelet Volume 9.8 FL (9.6-12.0); Neutrophils % 57.9 % (38.7-73.9); Platelet Count 374 T/CUMM (130-400); Red Blood Count 3.83 MC/CUMM (3.8-5.5); Red Cell Distribution Width 14.9 % (9.3-17.3); White Blood Count 7.3 T/CUMM (4-12)
[2019-09-14 00:49] LABS: INR 0.9; PT Patient Result 9.8 SECS (9.6-12.2)
[2019-09-14 01:00] LABS: Albumin 3.5 G/DL (3.4-5.0); Bilirubin,Total 0.5 MG/DL (0.2-1.0); Osmolality,Calculated 280.1 MOS/KG (273-304); Total Protein 6.8 G/DL (6.4-8.3)
[2019-09-14] MEDS ORDERED: ALUM/MAG/SIMETH/LIDO VISC 1:1 30 ML BOTTLE PO STA (03:00)
[2019-09-14] MEDS ORDERED: PANTOPRAZOLE 40 MG VIAL IV STA (03:00)
[2019-09-14] MEDS ORDERED: KETOROLAC 30 MG/1 ML VIAL IV STA (03:00)
[2019-09-14] MEDS ORDERED: ALUM/MAG/SIMETH/LIDO VISC 1:1 30 ML BOTTLE PO ONE (03:23)
[2019-09-14] MEDS ORDERED: PANTOPRAZOLE 40 MG VIAL IV ONE (03:23)
[2019-09-14] MEDS ORDERED: KETOROLAC 30 MG/1 ML VIAL ONE (03:23)
[2019-09-14] MEDS ORDERED: NITROGLYCERIN SL 0.4 MG TABLET SL PRN (03:47)
[2019-09-14] MEDS ORDERED: KETOROLAC 15 MG/1 ML VIAL IV PRN (03:48)
[2019-09-14] MEDS ORDERED: ONDANSETRON 4 MG/2 ML VIAL IV PRN (03:49)
[2019-09-14] MEDS ORDERED: ACETAMINOPHEN 325 MG TABLET PO PRN (03:49)
[2019-09-14] MEDS ORDERED: DOCUSATE SODIUM 100 MG CAPSULE PO PRN (03:49)
[2019-09-14] MEDS: LEVOTHYROXINE 200 MCG TABLET PO SCH (05:58)
[2019-09-14] MEDS: PROMETHAZINE 25 MG TABLET PO PRN ×2 (05:58→11:53)
[2019-09-14] MEDS: clonazePAM 0.5 MG TABLET PO SCH (08:44)
[2019-09-14] MEDS: busPIRone 10 MG TABLET PO SCH ×3 (08:44→21:33)
[2019-09-14] MEDS: CHOLECALCIFEROL 5,000 UNIT TABLET PO SCH (08:44)
[2019-09-14] MEDS: FLUoxetine 20 MG CAPSULE PO SCH (08:44)
[2019-09-14] MEDS: PANTOPRAZOLE 40 MG TABLET PO SCH (08:44)
[2019-09-14] MEDS: CLOPIDOGREL 75 MG TABLET PO SCH (08:44)
[2019-09-14] MEDS: MORPHINE 4 MG/1 ML VIAL IV PRN ×3 (08:58→18:42)
[2019-09-14] MEDS: ENOXAPARIN 40 MG/0.4 ML SYRINGE SUBCUT SCH (08:59)
[2019-09-14] MEDS ORDERED: ASPIRIN 325 MG TABLET PO SCH (09:00)
[2019-09-14] MEDS: LEVOTHYROXINE 50 MCG TABLET PO SCH (11:52)
[2019-09-14] MEDS ORDERED: ROSUVASTATIN 20 MG TABLET PO SCH (21:00)
[2019-09-15] MEDS: MORPHINE 4 MG/1 ML VIAL IV PRN ×2 (02:07→13:25)
[2019-09-15 05:29] LABS: Basophils % 0.6 % (0.0-0.8); Eosinophils # 0.1 10*3/uL (0.0-0.87); Hematocrit 37.3 VOL% (35.7-47.0); Hemoglobin 12.3 GM/DL (12.0-16.0); Immature Granulocytes % 0.8 %; Immature Granulocytes Absolute 0.06 #; Lymphocytes # 2.4 10*3/uL (1.4-4.0); Lymphocytes % 32.6 % (21.3-54.2); Mean Corpuscular Volume 105.4 FL (87-102); Monocytes % 7.6 % (1.7-12.7); Neutrophils % 57.4 % (38.7-73.9); Platelet Count 330 T/CUMM (130-400); Red Blood Count 3.54 MC/CUMM (3.8-5.5); White Blood Count 7.2 T/CUMM (4-12)
[2019-09-15 05:51] LABS: Osmolality,Calculated 281.1 MOS/KG (273-304); Risk Ratio 4.86; VLDL CHOLESTEROL 24.6 MG/DL
[2019-09-15] MEDS: LEVOTHYROXINE 50 MCG TABLET PO SCH (06:40)
[2019-09-15] MEDS: LEVOTHYROXINE 200 MCG TABLET PO SCH (06:40)
[2019-09-15] MEDS: CLOPIDOGREL 75 MG TABLET PO SCH (08:49)
[2019-09-15] MEDS: CHOLECALCIFEROL 5,000 UNIT TABLET PO SCH (08:50)
[2019-09-15] MEDS: PANTOPRAZOLE 40 MG TABLET PO SCH (08:50)
[2019-09-15] MEDS: FLUoxetine 20 MG CAPSULE PO SCH (08:50)
[2019-09-15] MEDS: busPIRone 10 MG TABLET PO SCH (08:51)
[2019-09-15] MEDS: ENOXAPARIN 40 MG/0.4 ML SYRINGE SUBCUT SCH (08:53)
[2019-09-15] MEDS ORDERED: ASPIRIN 325 MG TABLET PO SCH (09:00)
[2019-09-15] MEDS ORDERED: ROSUVASTATIN 20 MG TABLET PO SCH ×2 (09:35→10:38)
[2019-09-15] MEDS: clonazePAM 0.5 MG TABLET PO SCH (09:37)
[2019-09-15 11:41] VITALS: BP 94/61
[2019-09-16] MEDS ORDERED: CYANOCOBALAMIN 1000 MCG/1 ML VIAL IM SCH (09:00)
== END 2019-09-15 15:54 | disposition home or self-care (01) ==
LOC: N.EDINP 23:12 → N.ED 23:12 → N.EDINP 09-14 04:30 → N.2W 09-14 04:46
PROVIDERS: ADMIT Internal Medicine; ATTEND Internal Medicine

== ENCOUNTER 2020-02-10 22:13 | Observation (INO) ==
[2020-02-10] MEDS ORDERED: MORPHINE 4 MG/1 ML VIAL IV STA (22:45)
[2020-02-10] MEDS ORDERED: ONDANSETRON 4 MG/2 ML VIAL IV STA (22:45)
[2020-02-10] MEDS ORDERED: ASPIRIN 325 MG TABLET PO STA (22:45)
[2020-02-10] MEDS ORDERED: NITROGLYCERIN 2% OINT 1 INCH/GM PACK TOP STA (22:45)
[2020-02-10 23:36] LABS: Basophils # 0.1 10*3/uL (0.0-0.2); Basophils % 1.3 % (0.0-0.8); Eosinophils # 0.1 10*3/uL (0.0-0.87); Eosinophils % 1.6 % (0.00-10.9); Hematocrit 39.7 VOL% (35.7-47.0); Hemoglobin 13.1 GM/DL (12.0-16.0); Immature Granulocytes % 0.4 %; Immature Granulocytes Absolute 0.03 #; Lymphocytes # 2.4 10*3/uL (1.4-4.0); Lymphocytes % 33.7 % (21.3-54.2); Mean Corpuscular Volume 102.8 FL (87-102); Mean Platelet Volume 9.8 FL (9.6-12.0); Platelet Count 340 T/CUMM (130-400); Red Blood Count 3.86 MC/CUMM (3.8-5.5); Red Cell Distribution Width 14.2 % (9.3-17.3)
[2020-02-10 23:48] LABS: PT Patient Result 10.4 SECS (9.8-11.9)
[2020-02-10 23:54] LABS: Albumin 3.6 G/DL (3.4-5.0); Bilirubin,Total 0.4 MG/DL (0.2-1.0); Calcium 9.3 MG/DL (8.5-10.1); Osmolality,Calculated 273.5 MOS/KG (273-304); Total Protein 7.4 G/DL (6.4-8.3)
[2020-02-10 23:58] LABS: Ferritin 35.8 ng/ml (8-252)
[2020-02-11 01:10] LABS: Apearance,Urine CLEAR (Clear); Bilirubin,Urine Negative (Negative); Blood, Urine Negative (Negative); Glucose,Urine (UA) Negative (Negative); Ketones,Urine Negative (Negative); Nitrite,Urine Negative (Negative); Protein,Urine Negative; Squamous Epithelial Cell,Urine Occasional /HPF (0-10); Urine Color Yellow (Yellow); Urine Urobilinogen < 2.0 EU/DL (0.2-1.0); WBC,Urine 2 /HPF (0-6)
[2020-02-11] MEDS ORDERED: MORPHINE 4 MG/1 ML VIAL IV STA (03:09)
[2020-02-11] MEDS ORDERED: ONDANSETRON 4 MG/2 ML VIAL IV STA (03:09)
[2020-02-11] MEDS ORDERED: ACETAMINOPHEN 325 MG TABLET PO PRN (05:10)
[2020-02-11] MEDS ORDERED: ZALEPLON 5 MG CAPSULE PO PRN (05:10)
[2020-02-11] MEDS ORDERED: DOCUSATE SODIUM 100 MG CAPSULE PO PRN ×2 (05:10→10:23)
[2020-02-11] MEDS ORDERED: NITROGLYCERIN SL 0.4 MG TABLET SL PRN (05:10)
[2020-02-11] MEDS ORDERED: ONDANSETRON 4 MG/2 ML VIAL IV PRN (05:10)
[2020-02-11] MEDS ORDERED: traMADol 50 MG TABLET PO PRN (05:10)
[2020-02-11] MEDS ORDERED: MORPHINE 4 MG/1 ML VIAL IV PRN (05:10)
[2020-02-11 07:19] LABS: Basophils # 0.1 10*3/uL (0.0-0.2); Basophils % 1.6 % (0.0-0.8); Eosinophils # 0.1 10*3/uL (0.0-0.87); Eosinophils % 1.8 % (0.00-10.9); Hematocrit 38.6 VOL% (35.7-47.0); Hemoglobin 12.6 GM/DL (12.0-16.0); Immature Granulocytes % 0.2 %; Immature Granulocytes Absolute 0.01 #; Lymphocytes # 2.5 10*3/uL (1.4-4.0); Lymphocytes % 44.5 % (21.3-54.2); Mean Corpuscular HGB Conc 32.6 GM/DL (32-36); Mean Corpuscular Volume 104.6 FL (87-102); Monocytes % 7.3 % (1.7-12.7); Neutrophils % 44.6 % (38.7-73.9); Platelet Count 321 T/CUMM (130-400); Red Blood Count 3.69 MC/CUMM (3.8-5.5); Red Cell Distribution Width 14.1 % (9.3-17.3); White Blood Count 5.6 T/CUMM (4-12)
[2020-02-11] MEDS ORDERED: ENOXAPARIN 40 MG/0.4 ML SYRINGE SUBCUT SCH (08:00)
[2020-02-11 08:21] LABS: Folate 4.9 NG/ML (5.4-24.0)
[2020-02-11 09:12] LABS: Calcium 8.8 MG/DL (8.5-10.1)
[2020-02-11 09:13] LABS: Osmolality,Calculated 274.4 MOS/KG (273-304); Risk Ratio 7.4; VLDL CHOLESTEROL 40.8 MG/DL
[2020-02-11] MEDS ORDERED: clonazePAM 0.5 MG TABLET PO SCH (12:00)
[2020-02-11] MEDS ORDERED: FLUoxetine 20 MG CAPSULE PO SCH (12:00)
[2020-02-11] MEDS ORDERED: FAMOTIDINE 20 MG TABLET PO SCH (12:00)
[2020-02-11] MEDS ORDERED: CLOPIDOGREL 75 MG TABLET PO SCH (12:00)
[2020-02-11 12:40] VITALS: BP 93/60
[2020-02-11] MEDS ORDERED: busPIRone 10 MG TABLET PO SCH (15:00)
[2020-02-11] MEDS ORDERED: MULTIVITAMIN (CENTRUM) TABLET PO SCH (21:00)
[2020-02-12] MEDS ORDERED: ASPIRIN 325 MG TABLET PO SCH (09:00)
[2020-02-12] MEDS ORDERED: CHOLECALCIFEROL 5,000 UNIT TABLET PO SCH (09:00)
[2020-02-12] MEDS ORDERED: LEVOTHYROXINE 175 MCG TABLET PO SCH (09:00)
== END 2020-02-11 17:45 | disposition home or self-care (01) ==
LOC: N.ED 22:13 → N.EDINP 22:13 → N.2E 02-11 03:09
PROVIDERS: ADMIT Internal Medicine; ATTEND Internal Medicine

== ENCOUNTER 2020-07-13 17:09 | Observation (INO) ==
[2020-07-13 17:39] LABS: Basophils # 0.1 10*3/uL (0.0-0.2); Basophils % 0.8 % (0.0-0.8); Eosinophils # 0.1 10*3/uL (0.0-0.87); Eosinophils % 1.2 % (0.00-10.9); Hematocrit 41.4 VOL% (35.7-47.0); Hemoglobin 14.1 GM/DL (12.0-16.0); Immature Granulocytes % 0.4 %; Immature Granulocytes Absolute 0.03 #; Lymphocytes # 2.6 10*3/uL (1.4-4.0); Lymphocytes % 33.9 % (21.3-54.2); Mean Corpuscular HGB Conc 34.1 GM/DL (32-36); Mean Corpuscular Volume 99.8 FL (87-102); Mean Platelet Volume 9.7 FL (9.6-12.0); Monocytes % 5.1 % (1.7-12.7); Neutrophils % 58.6 % (38.7-73.9); Platelet Count 388 T/CUMM (130-400); Red Blood Count 4.15 MC/CUMM (3.8-5.5); Red Cell Distribution Width 13.2 % (9.3-17.3); White Blood Count 7.6 T/CUMM (4-12)
[2020-07-13 17:59] LABS: Alanine Aminotransferase 13 U/L (13-56); Albumin 3.7 G/DL (3.4-5.0); Alkaline Phosphatase 131 U/L (45-117); Aspartate Amino Transferase 17 U/L (0-37); Bilirubin,Total < 0.39 MG/DL (0.2-1.0); Blood Urea Nitrogen 4 MG/DL (7-18); Calcium 8.8 MG/DL (8.5-10.1); Estimated Glom Filtration Rate 89 ML/MIN; Glucose 93 MG/DL (74-106); Osmolality,Calculated 279.1 MOS/KG (273-304)
[2020-07-13] MEDS ORDERED: KETOROLAC 30 MG/1 ML VIAL IV STA (19:09)
[2020-07-13] MEDS ORDERED: ASPIRIN EC 325 MG TABLET PO STA (19:09)
[2020-07-13] MEDS ORDERED: ONDANSETRON 4 MG/2 ML VIAL IV PRN ×2 (19:10→20:56)
[2020-07-13] MEDS ORDERED: MORPHINE 4 MG/1 ML VIAL IV ONE (20:55)
[2020-07-13] MEDS ORDERED: PROMETHAZINE INJ 12.5 MG in SODIUM CHLORIDE 0.9% 50 ML IV ONE (20:55)
[2020-07-13] MEDS ORDERED: GLUCAGON 1 MG VIAL IM PRN (20:56)
[2020-07-13] MEDS ORDERED: DEXTROSE 50% 25 GM/50 ML VIAL IV PRN (20:56)
[2020-07-13] MEDS ORDERED: PROMETHAZINE 25 MG/1 ML VIAL IM PRN (20:56)
[2020-07-13] MEDS ORDERED: DOCUSATE SODIUM 100 MG CAPSULE PO PRN (20:56)
[2020-07-13] MEDS ORDERED: MORPHINE 4 MG/1 ML VIAL IV PRN (20:56)
[2020-07-13] MEDS ORDERED: ENOXAPARIN 40 MG/0.4 ML SYRINGE SUBCUT SCH (21:00)
[2020-07-13] MEDS ORDERED: PANTOPRAZOLE 40 MG VIAL IV ONE (21:01)
[2020-07-13] MEDS: ACETAMINOPHEN 325 MG TABLET PO PRN (22:42)
[2020-07-14] MEDS: ACETAMINOPHEN 325 MG TABLET PO PRN (03:55)
[2020-07-14 06:36] LABS: Basophils # 0.1 10*3/uL (0.0-0.2); Basophils % 0.8 % (0.0-0.8); Eosinophils # 0.1 10*3/uL (0.0-0.87); Eosinophils % 1.6 % (0.00-10.9); Hematocrit 36.1 VOL% (35.7-47.0); Hemoglobin 12.1 GM/DL (12.0-16.0); Immature Granulocytes % 0.2 %; Immature Granulocytes Absolute 0.01 #; Lymphocytes # 3.2 10*3/uL (1.4-4.0); Lymphocytes % 50.2 % (21.3-54.2); Mean Corpuscular HGB Conc 33.5 GM/DL (32-36); Mean Corpuscular Volume 100.6 FL (87-102); Mean Platelet Volume 9.9 FL (9.6-12.0); Monocytes % 6.4 % (1.7-12.7); Neutrophils % 40.8 % (38.7-73.9); Platelet Count 311 T/CUMM (130-400); Red Blood Count 3.59 MC/CUMM (3.8-5.5); Red Cell Distribution Width 13.2 % (9.3-17.3); White Blood Count 6.3 T/CUMM (4-12)
[2020-07-14 06:56] LABS: Hypochromasia Slight; Macrocytosis Slight; Platelet Estimate Normal
[2020-07-14] MEDS ORDERED: LEVOTHYROXINE 175 MCG TABLET PO SCH (07:00)
[2020-07-14 07:03] LABS: Albumin 2.6 G/DL (3.4-5.0); Bilirubin,Total 0.4 MG/DL (0.2-1.0); Calcium 8.3 MG/DL (8.5-10.1); Osmolality,Calculated 280.1 MOS/KG (273-304); Risk Ratio 6.21; Thyroid Stimulating Hormone 33.3 uIU/ml (0.358-3.74); Total Protein 5.7 G/DL (6.4-8.3); VLDL CHOLESTEROL 34.4 MG/DL
[2020-07-14] MEDS ORDERED: DOCUSATE SODIUM 100 MG CAPSULE PO PRN (08:49)
[2020-07-14] MEDS ORDERED: FAMOTIDINE 20 MG TABLET PO SCH (09:00)
[2020-07-14] MEDS ORDERED: CLOPIDOGREL 75 MG TABLET PO SCH (09:00)
[2020-07-14] MEDS ORDERED: FLUoxetine 20 MG CAPSULE PO SCH (09:00)
[2020-07-14] MEDS ORDERED: PANTOPRAZOLE 40 MG TABLET PO SCH (09:00)
[2020-07-14] MEDS ORDERED: CHOLECALCIFEROL 5,000 UNIT TABLET PO SCH (09:00)
[2020-07-14] MEDS ORDERED: clonazePAM 0.5 MG TABLET PO SCH (09:00)
[2020-07-14] MEDS ORDERED: ASPIRIN 325 MG TABLET PO SCH (09:00)
[2020-07-14 09:23] LABS: Troponin I < 0.015 NG/ML (0.00-0.045)
[2020-07-14] MEDS: busPIRone 10 MG TABLET PO SCH ×2 (09:47→15:31)
[2020-07-14] MEDS ORDERED: ALUM/MAG/SIMETH/LIDO VISC 1:1 30 ML BOTTLE PO ONE (11:16)
[2020-07-14 15:30] LABS: Bilirubin,Urine Negative (Negative); Blood, Urine Negative (Negative); Glucose,Urine (UA) Negative (Negative); Ketones,Urine Negative (Negative); Mucus,Urine Occasional /LPF (Occasional); Nitrite,Urine Negative (Negative); Protein,Urine Negative; RBC,Urine 1 /HPF (0-4); Squamous Epithelial Cell,Urine Occasional /HPF (0-10); Urine Appearance CLEAR (Clear); Urine Color Yellow (Yellow); Urine Specific Gravity 1.013 (1.001-1.035); Urine Urobilinogen < 2.0 EU/DL (0.2-1.0); WBC,Urine 1 /HPF (0-6)
[2020-07-14 15:56] VITALS: BP 90/50
[2020-07-14] MEDS ORDERED: MULTIVITAMIN (CENTRUM) TABLET PO SCH (21:00)
[2020-07-14] MEDS ORDERED: OMEGA 3 ACID ETHYL ESTERS 1 GM CAPSULE PO SCH (21:00)
== END 2020-07-14 16:57 | disposition home or self-care (01) ==
LOC: N.TELEN 17:09 → N.ED 17:09 → N.TELEN 21:58
PROVIDERS: ADMIT Hospitalist; ATTEND Hospitalist

== ENCOUNTER 2022-11-08 20:56 | Observation (INO) ==
[2022-11-08] MEDS ORDERED: MORPHINE 2 MG/1 ML SYRINGE IV ONE ×2 (21:20→22:58)
[2022-11-08] MEDS ORDERED: ONDANSETRON 4 MG/2 ML VIAL IV ONE (21:20)
[2022-11-08 21:58] LABS: Basophils # 0.1 10*3/uL (0.0-0.2); Basophils % 0.8 % (0.0-0.8); Eosinophils # 0.1 10*3/uL (0.0-0.87); Hematocrit 39.3 VOL% (35.7-47.0); Hemoglobin 13.3 GM/DL (12.0-16.0); Immature Granulocytes % 0.1 %; Immature Granulocytes Absolute 0.01 #; Lymphocytes # 2.9 10*3/uL (1.4-4.0); Lymphocytes % 36.5 % (21.3-54.2); Mean Corpuscular HGB Conc 33.8 GM/DL (32-36); Mean Corpuscular Volume 101.6 FL (87-102); Mean Platelet Volume 10.1 FL (9.6-12.0); Monocytes # 0.4 10*3/uL (0.11-0.8); Monocytes % 5.5 % (1.7-12.7); Neutrophils % 56.1 % (38.7-73.9); Platelet Count 374 T/CUMM (130-400); Red Blood Count 3.87 MC/CUMM (3.8-5.5); Red Cell Distribution Width 13.1 % (9.3-17.3); White Blood Count 7.9 T/CUMM (4-12)
[2022-11-08 22:12] LABS: INR 0.9; PT Patient Result 10.3 SECS (10.1-12.1)
[2022-11-08 22:21] LABS: Alanine Aminotransferase 14 U/L (13-56); Albumin 3.7 G/DL (3.4-5.0); Alkaline Phosphatase 100 U/L (45-117); Aspartate Amino Transferase 16 U/L (0-37); Bilirubin,Total < 0.39 MG/DL (0.20-1.00); Blood Urea Nitrogen 11 MG/DL (7-18); Calcium 9.4 MG/DL (8.5-10.1); Carbon Dioxide 26 MMOL/L (21-32); Chloride 112 MMOL/L (98-107); Glucose 84 MG/DL (74-106); Osmolality,Calculated 283.8 MOS/KG (273-304); Potassium 3.6 MMOL/L (3.5-5.1); Sodium 144 MMOL/L (136-145); Total Protein 6.6 G/DL (6.4-8.2)
[2022-11-08] MEDS ORDERED: ALUM/MAG/SIMETH/LIDO VISC 1:1 30 ML BOTTLE PO STA (22:58)
[2022-11-08] MEDS ORDERED: KETOROLAC 30 MG/1 ML VIAL IV ONE (23:54)
[2022-11-09] MEDS ORDERED: ENOXAPARIN 100 MG/ML SYRINGE SUBCUT ONE (00:32)
[2022-11-09] MEDS ORDERED: MORPHINE 2 MG/1 ML SYRINGE IV STA (00:34)
[2022-11-09] MEDS ORDERED: guaiFENesin/DM ER 600-30 MG TABLET PO PRN (00:39)
[2022-11-09] MEDS ORDERED: ALBUTEROL/IPRATROPIUM 3 ML NEB RESP TX PRN (00:39)
[2022-11-09] MEDS ORDERED: diphenhydrAMINE CAP 25 MG CAPSULE PO PRN (00:39)
[2022-11-09] MEDS ORDERED: hydrALAZINE 20 MG/1 ML VIAL IV PRN (00:39)
[2022-11-09] MEDS ORDERED: NICOTINE 21 MG/24 HR PATCH TRANSDERM PRN (00:39)
[2022-11-09] MEDS ORDERED: ONDANSETRON 4 MG/2 ML VIAL IV PRN (00:39)
[2022-11-09] MEDS ORDERED: NITROGLYCERIN SL 0.4 MG TABLET SL PRN (01:11)
[2022-11-09 02:53] LABS: Basophils # 0.1 10*3/uL (0.0-0.2); Basophils % 0.6 % (0.0-0.8); Eosinophils # 0.1 10*3/uL (0.0-0.87); Eosinophils % 1.1 % (0.00-10.9); Hematocrit 38.5 VOL% (35.7-47.0); Hemoglobin 12.7 GM/DL (12.0-16.0); Immature Granulocytes % 0.3 %; Immature Granulocytes Absolute 0.03 #; Lymphocytes # 3.6 10*3/uL (1.4-4.0); Mean Corpuscular Volume 102.9 FL (87-102); Monocytes # 0.5 10*3/uL (0.11-0.8); Monocytes % 5.8 % (1.7-12.7); Neutrophils % 53.2 % (38.7-73.9); Platelet Count 354 T/CUMM (130-400); Red Blood Count 3.74 MC/CUMM (3.8-5.5); White Blood Count 9.3 T/CUMM (4-12)
[2022-11-09 03:23] LABS: Calcium 8.8 MG/DL (8.5-10.1); Osmolality,Calculated 281.1 MOS/KG (273-304); Potassium 3.4 MMOL/L (3.5-5.1); Risk Ratio 4.79; VLDL Cholesterol 26.6 MG/DL
[2022-11-09] MEDS: LEVOTHYROXINE 150 MCG TABLET PO SCH ×2 (06:23→08:20)
[2022-11-09] MEDS: POTASSIUM CHLORIDE 10 MEQ TABLET PO SCH (08:16)
[2022-11-09] MEDS: CLOPIDOGREL 75 MG TABLET PO SCH (08:16)
[2022-11-09] MEDS: ACETAMINOPHEN 325 MG TABLET PO PRN ×2 (08:17→20:56)
[2022-11-09] MEDS: PANTOPRAZOLE 40 MG TABLET PO SCH (08:17)
[2022-11-09] MEDS: busPIRone 10 MG TABLET PO SCH ×3 (08:17→20:50)
[2022-11-09] MEDS: FLUoxetine 20 MG CAPSULE PO SCH (08:17)
[2022-11-09] MEDS: clonazePAM 0.5 MG TABLET PO SCH ×2 (09:17→20:51)
[2022-11-09] MEDS: MORPHINE 2 MG/1 ML SYRINGE IV PRN ×2 (09:21→23:32)
[2022-11-09] MEDS: ASCORBIC ACID 500 MG TABLET PO SCH ×2 (13:13→20:50)
[2022-11-09] MEDS ORDERED: POTASSIUM CHLORIDE RIDER 10 MEQ/100 ML PREMIX IV PRN (17:19)
[2022-11-09] MEDS ORDERED: MAGNESIUM SULF RIDER 2 GM/50 ML PREMIX IV PRN (17:19)
[2022-11-09] MEDS ORDERED: DIAZEPAM 5 MG TABLET PO ONE (17:25)
[2022-11-09] MEDS ORDERED: ATORVASTATIN 40 MG TABLET PO SCH (21:00)
[2022-11-10 04:30] LABS: Basophils % 0.5 % (0.0-0.8); Eosinophils # 0.1 10*3/uL (0.0-0.87); Eosinophils % 1.4 % (0.00-10.9); Hematocrit 36.4 VOL% (35.7-47.0); Immature Granulocytes % 0.2 %; Immature Granulocytes Absolute 0.01 #; Lymphocytes # 2.8 10*3/uL (1.4-4.0); Lymphocytes % 44.2 % (21.3-54.2); Mean Corpuscular Volume 103.1 FL (87-102); Mean Platelet Volume 10.2 FL (9.6-12.0); Monocytes # 0.4 10*3/uL (0.11-0.8); Monocytes % 6.4 % (1.7-12.7); Neutrophils % 47.3 % (38.7-73.9); Platelet Count 290 T/CUMM (130-400); Red Blood Count 3.53 MC/CUMM (3.8-5.5); Red Cell Distribution Width 13.1 % (9.3-17.3); White Blood Count 6.4 T/CUMM (4-12)
[2022-11-10 04:45] LABS: Calcium 8.5 MG/DL (8.5-10.1); Osmolality,Calculated 278.4 MOS/KG (273-304); Potassium 3.8 MMOL/L (3.5-5.1)
[2022-11-10 05:43] LABS: Platelet Estimate Normal
[2022-11-10 05:44] LABS: Anisocytosis Slight; Macrocytosis 1+
[2022-11-10] MEDS ORDERED: LEVOTHYROXINE 75 MCG TABLET PO SCH (06:00)
[2022-11-10] MEDS ORDERED: DIAZEPAM 5 MG TABLET PO ONE ×2 (06:30→11:00)
[2022-11-10] MEDS ORDERED: POTASSIUM CHLORIDE RIDER 10 MEQ/100 ML PREMIX IV PRN (07:42)
[2022-11-10] MEDS ORDERED: MAGNESIUM SULF RIDER 2 GM/50 ML PREMIX IV PRN (07:42)
[2022-11-10] MEDS ORDERED: SODIUM CHLORIDE 0.9% 1,000 ML IV SCH (08:00)
[2022-11-10] MEDS ORDERED: ASPIRIN EC 81 MG TABLET PO SCH (09:00)
[2022-11-10] MEDS ORDERED: OMEGA 3 ACID ETHYL ESTERS 1 GM CAPSULE PO SCH (09:00)
[2022-11-10] MEDS: FLUoxetine 20 MG CAPSULE PO SCH (09:29)
[2022-11-10] MEDS: clonazePAM 0.5 MG TABLET PO SCH (09:29)
[2022-11-10] MEDS: ASCORBIC ACID 500 MG TABLET PO SCH (09:30)
[2022-11-10] MEDS: CLOPIDOGREL 75 MG TABLET PO SCH (09:30)
[2022-11-10] MEDS: busPIRone 10 MG TABLET PO SCH (09:30)
[2022-11-10] MEDS: PANTOPRAZOLE 40 MG TABLET PO SCH (09:31)
[2022-11-10] MEDS: POTASSIUM CHLORIDE 10 MEQ TABLET PO SCH (09:31)
[2022-11-10] MEDS ORDERED: diphenhydrAMINE CAP 25 MG CAPSULE PO ONE (11:00)
[2022-11-10] MEDS ORDERED: HEPARIN/NACL 0.9% 2 UNITS/ML 1,000 UNIT/500 ML BAG IV ONE ×2 (11:52→11:53)
[2022-11-10] MEDS ORDERED: fentaNYL 100 MCG/2 ML VIAL ONE ×2 (12:56→13:07)
[2022-11-10] MEDS ORDERED: MIDAZOLAM 2 MG/2 ML VIAL ONE ×3 (12:56→13:07)
[2022-11-10 16:17] VITALS: BP 115/65
[2022-11-10] MEDS ORDERED: RANOLAZINE 500 MG TABLET PO SCH (21:00)
[2022-11-11] MEDS ORDERED: EZETIMIBE 10 MG TABLET PO SCH (09:00)
== END 2022-11-10 15:55 | disposition home or self-care (01) ==
LOC: N.ED 20:56 → N.EDINP 20:56 → SUATTDRO 11-09 00:39 → N.EDINP 11-09 01:45 → N.2W 11-09 01:59
PROVIDERS: ADMIT Internal Medicine; ATTEND Hospitalist
PROC: CLCCHCL (ICD-10-PCS; 2022-11-10 13:15)